=== PATIENT | female | born 1970 | race African-American/Black ===

== ENCOUNTER → 2016-11-14 | Day surgery (SDC) | payer OTHER ==
--- NOTE | 2016-11-18 16:15 | PATH ---
Surgical Pathology Report Patient Name: JAIRO DIOP [facility]. Rec. #: [id number] /Age/Gender: 1970 (Age: 46) / F Account: [id number] Location: [facility] RADIOLOGY U Taken: 11/14/2016 Received: 11/14/2016 Reported: 11/18/2016 Physicians: Sarah Lawson Specimen(s) Received LEFT BREAST CORE BIOPSY 12:00 RETRO Clinical History Ultrasound findings: Probably benign Final Diagnosis BREAST, LEFT, 12:00, RETRO, CORE BIOPSY: BENIGN BREAST TISSUE SHOWING ECTATIC DUCT(S), FIBROADENOMATOID CHANGE AND FOCAL CYSTIC APOCRINE METAPLASIA. Electronically Signed Reta Benavidez M.D. Gross Description Received in formalin, labeled "left breast 12:00 retro," are 5 martinez-yellow, cylindrical portions of fibroadipose tissue ranging from 0.8-2.5 cm. in length and averaging 0.1 cm. in diameter. The specimen is submitted in toto in one cassette. Time to formalin fixation: 2 minutes Total formalin fixation time: Approximately 11 hours. /11/14/2016 saudi11/14/2016
== END | disposition home or self-care (01) ==
LOC: FRADUS-SUR 09:27
PROVIDERS: ATTEND Family Medicine
PROC: 0HBU3ZX Excision of Left Breast, Percutaneous Approach, Diagnostic (ICD-10-PCS; principal; 2016-11-14)
DX: N63 Unspecified lump in breast (principal); N60.42 Mammary duct ectasia of left breast; N60.12 Diffuse cystic mastopathy of left breast
CPT/HCPCS: 19083; 87899; 88305-TC; A4648; G0206-TC

== ENCOUNTER → 2016-12-19 | Day surgery (SDC) | payer OTHER ==
--- NOTE | 2016-12-22 11:00 | PATH ---
Cytology Non-Gynecological Report Patient Name: JAIRO DIOP [facility]. Rec. #: [id number] /Age/Gender: 1970 (Age: 46) / F Account: [id number] Location: RADIOLOGY Taken: 12/19/2016 Received: 12/19/2016 Reported: 12/22/2016 Physicians: Sarah Wynn M.D. Specimen(s) Received RIGHT THYROID FNA Clinical History Right thyroid nodule, 4.54 x 2.24 x 3.3 cm Final Diagnosis THYROID GLAND, RIGHT LOBE, US GUIDED FINE NEEDLE ASPIRATION BIOPSY: SATISFACTORY FOR EVALUATION. NO MALIGNANT CELLS IDENTIFIED. CONSISTENT WITH NODULAR GOITER WITH CYSTIC CHANGE (BENIGN FOLLICULAR NODULE, BETHESDA CATEGORY II, BENIGN), SEE COMMENT. Comment: The smears and the cell block show clusters of bland appearing follicular epithelial cells arranged in mixed macro- and microfollicles and occasional flat sheets. Macrophages are present, indicative of cystic change. Colloid is present. Electronically Signed Quinn Reyna M.D. Gross Description Received are four air dried smears, four smears in 95% alcohol, and 20 cc of bloody fluid in formalin. Four diff-quik stained slides, four Pap stained slides and one cell block are made.
== END | disposition home or self-care (01) ==
LOC: JRADIR 09:31
PROVIDERS: ATTEND Internal Medicine Endocrinology, Diabetes & Metabolism
PROC: 0GBH3ZX Excision of Right Thyroid Gland Lobe, Percutaneous Approach, Diagnostic (ICD-10-PCS; principal; 2016-12-19)
PROC: BG44ZZZ Ultrasonography of Thyroid Gland (ICD-10-PCS; 2016-12-19)
DX: E04.1 Nontoxic single thyroid nodule (principal)
CPT/HCPCS: 76942; 88173; 88305-TC

== ENCOUNTER 2018-12-07 20:33 | Emergency (ER) | payer OTHER | END 2018-12-07 21:05 | disposition home or self-care (01) | LOC: JERFT 20:33 ==

== ENCOUNTER 2018-12-28 23:12 | Emergency (ER) | payer OTHER ==
[2018-12-28 23:45] VITALS: BP 178/94; PULSE 79; TEMP 98.2; BMI 43.9
--- NOTE | 2018-12-28 23:58 | PDOC ---
*Physical Exam - Vital Signs Last Vital Signs Temp Pulse Resp BP Pulse Ox 98.2 F 79 18 178/94 H 98 12/28/18 23:12 12/28/18 23:12 12/28/18 23:12 12/28/18 23:12 12/28/18 23:12 Medical Decision Making - Medical Decision Making 12/28/18 23:58 Patient seen by the advanced practice provider under my direct supervision. Ancillary testing reviewed as necessary. I agree with plan as outlined by the advanced practice provider. *DC/Admit/Observation/Transfer Diagnosis at time of Disposition: Infected dental caries - Discharge Dispostion Disposition: HOME Condition at time of disposition: Fair - Prescriptions Prescriptions: Amoxicillin/Potassium Clav [Augmentin 875-125 Tablet] 1 each PO BID #20 tablet Oxycodone HCl/Acetaminophen [Percocet 5-325 mg Tablet] 1 - 2 tab PO Q6H PRN #10 tab MDD 4 PRN Reason: Pain - Referrals - Patient Instructions Printed Discharge Instructions: DI for Tooth Decay, DI for Dental Pain Additional Instructions: please follow up with a dentist as soon as possible. take augmentin as prescribed. take percocet for - Post Discharge Activity Forms/Work/School Notes: Back to Work
[2018-12-29] MEDS ORDERED: AMOX TR/POT CLAV 875MG/125MG TABLETS (FP) PO ONE (00:02)
[2018-12-29] MEDS ORDERED: KETOROLAC TROMETHAMINE 30 MG/1 ML VIAL IM ONE (00:03)
--- NOTE | 2018-12-29 00:06 | PDOC ---
History of Present Illness - General Chief Complaint: Toothache Stated Complaint: TOOTHACHE Time Seen by Provider: 12/28/18 23:56 - History of Present Illness Initial Comments: 12/29/18 00:00 48 year old female right upper molar removal two weeks ago now with pain to the gum and teeth. patient with multiple tooth decay. no facial swelling, denies fever/ chills. patient is currently on amoxicillin 500 mg bid Past History - Past Medical History Allergies/Adverse Reactions: Allergies Allergy/AdvReac Type Severity Reaction Status Date / Time No Known Allergies Allergy Verified 12/28/18 23:45 Home Medications: Ambulatory Orders Cyclobenzaprine HCl [Flexeril 10 mg] 10 mg PO HS PRN #10 tablet 12/07/18 Amoxicillin/Potassium Clav [Augmentin 875-125 Tablet] 1 each PO BID #20 tablet 12/29/18 Oxycodone HCl/Acetaminophen [Percocet 5-325 mg Tablet] 1 - 2 tab PO Q6H PRN #10 tab MDD 4 12/29/18 - Suicide/Smoking/Psychosocial Hx Smoking History: Never smoked Have you smoked in the past 12 months: No Information on smoking cessation initiated: No Hx Alcohol Use: No Drug/Substance Use Hx: No Review of Systems - Review of Systems Able to Perform ROS?: Yes Is the patient limited Togolese proficient: No Constitutional: No: Symptoms Reported, See HPI, Chills, Diaphoresis, Fever, Loss of Appetite, Malaise, Night Sweats, Weakness, Weight Stable, Unintentional Wgt. Loss, Unexplained wgt Loss, Other HEENTM: Yes: Mouth Pain, Dental Problems. No: Symptoms Reported, See HPI, Eye Pain, Blurred Vision, Tearing, Recent change in vision, Double Vision, Cataracts , Ear Pain, Ocular Prothesis, Ear Discharge, Nose Pain, Nose Congestion, Tinnitus, Nose Bleeding, Hearing Loss, Throat Pain, Throat Swelling, Difficulty Swallowing, Mouth Swelling, Other Respiratory: No: Symptoms reported, See HPI, Cough, Orthopnea, Shortness of Breath, SOB with Exertion, SOB at Rest, Stridor, Wheezing, Productive cough, Hemoptysis, Other Cardiac (ROS): No: Symptoms Reported, See HPI, Chest Pain, Edema, Irregular Heart Rate, Lightheadedness, Palpitations, Syncope, Chest Tightness, Other *Physical Exam - Vital Signs Last Vital Signs Temp Pulse Resp BP Pulse Ox 98.2 F 79 18 178/94 H 98 12/28/18 23:12 12/28/18 23:12 12/28/18 23:12 12/28/18 23:12 12/28/18 23:12 - Physical Exam General Appearance: Yes: Appropriately Dressed HEENT: positive: Other (no facial swelling. right upper molar / gum tenderness) Neck: negative: Tender, Trachea midline, Normal Thyroid, Rigid, Supple, Carotid bruit, Decreased range of motion, Stridor, Lymphadenopathy (R), Lymphadenopathy (L), Rigidity, Tender lateral, Tender midline, Thyromegaly, Other Integumentary: positive: Normal Color, Dry, Warm Neurologic: positive: Fully Oriented, Alert, Normal Mood/Affect Medical Decision Making - Medical Decision Making Dental infection P: augmentin pain control toradol outpatient dentist follow up *DC/Admit/Observation/Transfer Diagnosis at time of Disposition: Infected dental caries - Discharge Dispostion Disposition: HOME Condition at time of disposition: Fair - Prescriptions Prescriptions: Amoxicillin/Potassium Clav [Augmentin 875-125 Tablet] 1 each PO BID #20 tablet Oxycodone HCl/Acetaminophen [Percocet 5-325 mg Tablet] 1 - 2 tab PO Q6H PRN #10 tab MDD 4 PRN Reason: Pain - Referrals - Patient Instructions Printed Discharge Instructions: DI for Tooth Decay, DI for Dental Pain Additional Instructions: please follow up with a dentist as soon as possible. take augmentin as prescribed. take percocet for - Post Discharge Activity Forms/Work/School Notes: Back to Work
[2018-12-29] MEDS ORDERED: AMOX TR/POT CLAV 875MG/125MG TABLETS (FP) ONE (00:38)
[2018-12-29] MEDS ORDERED: KETOROLAC TROMETHAMINE 30 MG/1 ML VIAL ONE ×2 (00:39→00:41)
== END 2018-12-29 01:19 | disposition home or self-care (01) ==
LOC: JER 23:12
PROC: 3E0233Z Introduction of Anti-inflammatory into Muscle, Percutaneous Approach (ICD-10-PCS; principal; 2018-12-28)
DX: K02.9 Dental caries, unspecified (principal)
CPT/HCPCS: 99282-25

== ENCOUNTER 2021-01-21 21:22 | Emergency (ER) | payer OTHER ==
[2021-01-21 21:29] VITALS: TEMP 98.1; BMI 45.2
[2021-01-21] MEDS ORDERED: ACETAMINOPHEN 325 MG TABLET (FP) PO ONE (22:06)
[2021-01-21 22:24] LABS: BASO % 1.1 % (0-2.0); HEMATOCRIT 31.2 % (32.4-45.2); LYMPH % 40.8 % (8-40); MCH 22.8 pg (25.7-33.7); MEAN CELL VOLUME 71.2 fl (80-96); MEAN PLT VOLUME 7.6 fl (7.5-11.1); MONO % 9.8 % (3.8-10.2); NEUT % 45.3 % (42.8-82.8); PLATELET COUNT 315 10^3/uL (134-434); RBC 4.38 M/mm3 (3.60-5.2); RDW 15.5 % (11.6-15.6); WHITE BLOOD COUNT 7.5 K/mm3 (4.0-10.0)
[2021-01-21] MEDS ORDERED: ACETAMINOPHEN 325 MG TABLET (FP) ONE (22:28)
[2021-01-21 22:33] LABS: CHLORIDE 107 mmol/L (98-107); SODIUM 139 mmol/L (136-145)
[2021-01-21 22:35] LABS: CALCIUM 8.5 mg/dL (8.5-10.1)
[2021-01-21 22:36] LABS: ALBUMIN 3.2 g/dl (3.4-5.0); ANION GAP 5 MMOL/L (8-16); BLOOD UREA NITROGEN 12.2 mg/dL (7-18); CO2 28 mmol/L (21-32); GLUCOSE,RANDOM 88 mg/dL (74-106)
[2021-01-21 22:39] LABS: CREATININE 0.9 mg/dL (0.55-1.3); SGOT/AST 17 U/L (15-37); SGPT/ALT 26 U/L (13-61)
[2021-01-21 22:41] LABS: BILIRUBIN,TOTAL 0.2 mg/dL (0.2-1); TOT PROT 8.1 g/dl (6.4-8.2)
[2021-01-21 22:42] LABS: ALK PHOS 69 U/L (45-117)
[2021-01-21] MEDS ORDERED: IBUPROFEN 400 MG TABLET (FP) PO ONE ×2 (23:13→23:19)
[2021-01-21 23:25] VITALS: BP 158/98; PULSE 72
== END 2021-01-22 | disposition home or self-care (01) ==
LOC: JER 21:22
DX: R07.9 Chest pain, unspecified (principal)
CPT/HCPCS: 36415; 71046-TC-FY; 80053; 82550; 84484; 84703; 85025; 93005; 93010; 99285-25; C9803; U0003; U0005